=== PATIENT | female | born 1940 | race Caucasian/White ===

== ENCOUNTER 2023-10-14 11:00 | Outpatient (CLI) | payer MEDICARE, BC ==
[2023-10-14 13:00] LABS: Anion Gap 18 mmol/L (10-20); BUN (Urea Nitrogen) 9 mg/dL (9.8-20.1); Calc. Creatinine Clearance 0 mL/min (70-130); Calcium 9.2 mg/dL (7.8-10.44); Carbon Dioxide 21 mmol/L (23-31); Chloride 100 mmol/L (98-107); Estimated GFR 64; Glucose 316 mg/dL (83-110); Potassium 4.7 mmol/L (3.5-5.1); Sodium 134 mmol/L (136-145)
== END 2023-10-14 11:01 | disposition home or self-care (01) ==
LOC: CSHLAB 11:00
PROVIDERS: ATTEND Surgery
DX: Z01.818 Encounter for other preprocedural examination (principal); C67.9 Malignant neoplasm of bladder, unspecified
CPT/HCPCS: 80048; 93005; 93010

== ENCOUNTER 2023-10-16 05:51 | Day surgery (SDC) | payer MEDICARE, BC ==
[2023-10-14 11:59] VITALS: BMI 31.8
[2023-10-16] MEDS ORDERED: Phenylephrine 40 MG/NS 250 ML 250 ML ONE (06:14)
[2023-10-16] MEDS ORDERED: Propofol 1,000 MG/100 ML VIAL IV ONE (06:15)
[2023-10-16] MEDS ORDERED: EPINEPHrine 1 MG/ML VIAL ONE (06:23)
[2023-10-16] MEDS ORDERED: Bupivacaine PF 0.5% 30 ML VIAL ONE (06:24)
[2023-10-16] MEDS ORDERED: Dexamethasone 4 mg/ml Vial ONE (06:44)
[2023-10-16] MEDS ORDERED: PROPOFOL 20 ML ONE (06:44)
[2023-10-16] MEDS ORDERED: Lidocaine 1% (PF) 30 ML VIAL ONE (06:44)
[2023-10-16] MEDS ORDERED: Ondansetron PF 4 MG/2 ML Vial ONE (06:44)
[2023-10-16] MEDS ORDERED: CEFAZOLIN 2 GM VIAL ONE (06:45)
[2023-10-16] MEDS ORDERED: fentaNYL 50 mcg/mL 1 mL Vial ONE (06:45)
[2023-10-16] MEDS ORDERED: Atropine Sulfate 0.4 mg/1 ml Vial ONE (06:46)
[2023-10-16] MEDS ORDERED: Midazolam HCl 2 mg/2 ml Vial ONE (06:51)
[2023-10-16] MEDS ORDERED: Acetaminophen 325 MG TAB PO PRN (07:38)
[2023-10-16] MEDS ORDERED: HYDROcodone/Acetaminophen 5/325 mg Tablet PO PRN (07:38)
== END 2023-10-16 08:30 | disposition home or self-care (01) ==
LOC: CSHSDC 05:51
PROVIDERS: ATTEND Surgery
PROC: 0JH63WZ Insertion of Totally Implantable Vascular Access Device into Chest Subcutaneous Tissue and Fascia, Percutaneous Approach (ICD-10-PCS; principal; 2023-10-16)
DX: C67.9 Malignant neoplasm of bladder, unspecified (principal); I10 Essential (primary) hypertension; E11.9 Type 2 diabetes mellitus without complications; E03.9 Hypothyroidism, unspecified; Z90.710 Acquired absence of both cervix and uterus; Z98.890 Other specified postprocedural states; Z88.8 Allergy status to other drugs, medicaments and biological substances; Z79.890 Hormone replacement therapy; Z79.899 Other long term (current) drug therapy
CPT/HCPCS: 36561; 71045; C1788; J0171; J3010; J0461; J1100; J1642; J2001; J2250; J2405; J2704; S0020

== ENCOUNTER 2025-10-26 05:36 | Day surgery (SDC) | payer MEDICARE, BC ==
[2025-10-16 08:18] VITALS: BMI 31.6
[2025-10-26] MEDS ORDERED: Lidocaine 1% (PF) 30 ML VIAL ONE (06:41)
[2025-10-26] MEDS ORDERED: PROPOFOL 40 ML ONE (06:41)
[2025-10-26] MEDS ORDERED: Sevoflurane 250 ML INH ANEST BOTTLE ONE (07:35)
[2025-10-26] MEDS ORDERED: Bupivacaine HCl 0.5%/Epinephrine 1:200,000/PF 30 ml Vial ONE (07:35)
[2025-10-26] MEDS ORDERED: CEFAZOLIN 2 GM VIAL ONE (07:55)
[2025-10-26] MEDS ORDERED: Lidocaine 2% PF 100 mg/5 ml Syringe ONE (08:17)
[2025-10-26] MEDS ORDERED: Ketorolac Tromethamine 30 MG (1 mL) VIAL ONE (08:17)
[2025-10-26] MEDS ORDERED: HYDROcodone/Acetaminophen 5/325 mg Tablet ONE (09:37)
== END 2025-10-26 10:30 | disposition home or self-care (01) ==
LOC: CSHSDC 05:36
PROVIDERS: ATTEND Surgery
PROC: 0WQF0ZZ Repair Abdominal Wall, Open Approach (ICD-10-PCS; principal; 2025-10-26)
DX: K42.9 Umbilical hernia without obstruction or gangrene (principal); I10 Essential (primary) hypertension; E11.9 Type 2 diabetes mellitus without complications; E78.00 Pure hypercholesterolemia, unspecified; Z85.51 Personal history of malignant neoplasm of bladder; Z87.891 Personal history of nicotine dependence; Z90.710 Acquired absence of both cervix and uterus; Z88.5 Allergy status to narcotic agent; Z88.8 Allergy status to other drugs, medicaments and biological substances; Z79.85 Long-term (current) use of injectable non-insulin antidiabetic drugs; Z79.899 Other long term (current) drug therapy
CPT/HCPCS: 49591; A6258; J1885; J2003 ×2; J2704